=== PATIENT | male | born 1950 | race Two or more races ===

== ENCOUNTER 2023-01-23 12:31 | Inpatient (IN) | payer MEDICARE, MEDICAID ==
[~2023-01-23] VITALS: Ht 170.2 cm; Wt 116.0 kg
[~2023-01-23 12:31] MED LIST: ALBU8.5H17 IH; ATOR-2 PO; DEC4T PO; ENOX40DI11 SUBCUT; FLO0.4C PO; LORA10TA7 PO; NITR0.4T48 SL; RAMI10CA69 PO
[2023-01-23 12:56] LABS: BASOPHILS % (AUTO) 0.5 % (0-1); EOSINOPHILS # (AUTO) 0.2 X10'3 (0-0.9); EOSINOPHILS % (AUTO) 1.7 % (0-6); HEMATOCRIT 48.1 % (42.0-52.0); HEMOGLOBIN 15.7 g/dl (14.0-17.9); LYMPHOCYTES # (AUTO) 1.9 X10'3 (1.1-4.8); LYMPHOCYTES % (AUTO) 21.1 % (21-51); MEAN CORPUSCULAR HEMOGLOBIN 28.7 PG (27.0-31.0); MEAN CORPUSCULAR HGB CONC 32.7 g/dL (33.0-36.5); MEAN CORPUSCULAR VOLUME 87.8 FL (78-98); MEAN PLATELET VOLUME 7.4 FL (7.4-10.4); MONOCYTES # (AUTO) 0.8 X10'3 (0-0.9); MONOCYTES % (AUTO) 9.2 % (2-12); NEUTROPHILS # (AUTO) 6.2 X10'3 (1.8-7.7); NEUTROPHILS % (AUTO) 67.5 % (42-75); PLATELET COUNT 325 X10'3 (140-440); RED BLOOD COUNT 5.47 X10'6 (4.70-6.10); RED CELL DISTRIBUTION WIDTH 15.4 % (11.5-14.5); WHITE BLOOD COUNT 9.2 X10'3 (4.5-11.0)
--- NOTE | 2023-01-23 13:21 | NUR ---
CRITICAL LAB VALUE. TROPONIN LEVEL OF [address] CHAHAL HAVE BEEN NOTIFIED.
[2023-01-23 13:22] LABS: ALANINE AMINOTRANSFERASE 29 U/L (12-78); ALBUMIN 3.8 G/DL (3.4-5.0); ALKALINE PHOSPHATASE 85 IU/L (46-116); ANION GAP 12 (8-16); ASPARTATE AMINO TRANSFERASE 20 U/L (10-37); BILIRUBIN,TOTAL 0.6 MG/DL (0.1-1.0); BLOOD UREA NITROGEN 28 MG/DL (7-18); BUN/CREATININE RATIO 13.7 (10.0-20.0); CALCIUM 9.2 MG/DL (8.5-10.1); CHLORIDE 106 MMOL/L (99-107); CREATININE 2.04 MG/DL (0.60-1.10); GLUCOSE 145 MG/DL (70-104); POTASSIUM 4.1 MMOL/L (3.5-5.1); PRO BRAIN NATRIURETIC PEPTIDE 2366 PG/ML (0-125); SODIUM 141 MMOL/L (135-145); TOTAL CARBON DIOXIDE 22.8 MMOL/L (24-32); TOTAL PROTEIN 7.6 G/DL (6.4-8.2); eCRCL 31 ML/MIN; eGFR 32 ML/MIN
[2023-01-23 14:42] LABS: D-DIMER 0.22 MG/L FEU (0-0.50)
--- NOTE | 2023-01-23 15:21 | NUR ---
Critical lab troponin 81. Francie NARAYANAN notified.
[2023-01-23] MEDS ORDERED: DOCU100C40 PO (16:09)
[2023-01-23] MEDS ORDERED: KEN0.1O TOP (16:09)
[2023-01-23] MEDS ORDERED: ADV50250 PO (16:09)
[2023-01-23] MEDS ORDERED: ALLO300T8 PO (16:09)
[2023-01-23] MEDS ORDERED: OMEP20CA16 PO (16:09)
[2023-01-23] MEDS ORDERED: ASPI-1397 PO (16:09)
[2023-01-23] MEDS ORDERED: ISOS10TA2 PO (16:09)
[2023-01-23] MEDS ORDERED: METO-411 PO (16:09)
[2023-01-23] MEDS ORDERED: MONT-40 PO (16:09)
[2023-01-23] MEDS ORDERED: MELO-102 PO (16:09)
[2023-01-23] MEDS ORDERED: ALBU17AE26 PO (16:09)
[2023-01-23] MEDS ORDERED: METO-384 PO (16:09)
[2023-01-23] MEDS ORDERED: AMLO5TAB16 PO (16:09)
[2023-01-23] MEDS ORDERED: AZEL6DRO5 EACHEYE (16:09)
[2023-01-23] MEDS ORDERED: EZET10TA48 PO (16:09)
[2023-01-23] MEDS ORDERED: AZEL205. BOTHNARES (16:09)
[2023-01-23] MEDS ORDERED: FINA5TAB12 PO (16:09)
[2023-01-23] MEDS ORDERED: mag hydrox/Alum hydrox/simeth 30ml oral suspension PO PRN (17:15)
[2023-01-23] MEDS ORDERED: magnesium Cl slow-release 64mg tablet PO PRN (17:15)
[2023-01-23] MEDS ORDERED: magnesium 2GM in 50ml NS 50 ML IV PRN (17:15)
[2023-01-23] MEDS ORDERED: acetaminophen 325mg tablet PO PRN (17:15)
[2023-01-23] MEDS ORDERED: ondansetron/PF 4mg/2ml inj IV PRN (17:15)
[2023-01-23] MEDS ORDERED: magnesium 4gm in 100ml NS 100 ML IV PRN (17:15)
[2023-01-23] MEDS ORDERED: potassium Cl 20 mEq SR tablet PO PRN ×2 (17:15)
[2023-01-23] MEDS ORDERED: magnesium hydroxide 30ml (MOM) UD suspension PO PRN (17:15)
[2023-01-23] MEDS ORDERED: morphine 2 MG/ML inj. syringe IV PRN ×2 (17:15)
[2023-01-23] MEDS ORDERED: potassium Cl 40MEQ/1/2NS 520ml 520 ML IV PRN (17:15)
[2023-01-23] MEDS ORDERED: albuterol 2.5 MG/3 ML nebule NEB PRN (17:40)
[2023-01-23 17:54] LABS: MAGNESIUM 1.9 MG/DL (1.5-2.4)
[2023-01-23 18:00] LABS: HEMOGLOBIN A1C 5.9 % (4.5-6.2)
[2023-01-23] MEDS ORDERED: nitroGLYCERIN 0.4mg SUBLingual tab SL PRN (18:20)
[2023-01-23] MEDS ORDERED: regadenoson 0.4mg/5ml syringe IV PRN (18:20)
[2023-01-23] MEDS ORDERED: aminophylline 250mg/10ml inj. IV PRN (18:20)
[2023-01-23] MEDS ORDERED: metoprolol tartrate 1mg/ml inj IV PRN (18:20)
[2023-01-23] MEDS ORDERED: clopidogrel 75mg tablet PO SCH (18:20)
--- NOTE | 2023-01-23 18:21 | NUR ---
assumed care from jorge gay
--- NOTE | 2023-01-23 18:22 | NUR ---
technical architect at bedside.
[2023-01-23] MEDS ORDERED: ipratropium/albuterol 3ml nebule NEB PRN (18:55)
--- NOTE | 2023-01-23 19:22 | NUR ---
HOSPITALIST AT BEDSIDE
[2023-01-23 20:00] VITALS: RESP 17; O2SAT 97
[2023-01-23] MEDS ORDERED: amLODIPine 5mg tablet PO SCH (20:00)
[2023-01-23] MEDS ORDERED: AZELASTINE HCL EACHEYE SCH (20:00)
[2023-01-23] MEDS ORDERED: AZELASTINE HCL 0.15% NS SCH (20:00)
[2023-01-23] MEDS: K and/or MAG REPLACEMENT MC SCH (20:00)
[2023-01-23] MEDS ORDERED: RAMIPRIL PO SCH (20:00)
[2023-01-23] MEDS: ipratropium/albuterol 3ml nebule NEB SCH (20:01)
[2023-01-23 20:03] VITALS: PULSE 59; RESP 16; O2SAT 99
[2023-01-23 20:11] VITALS: PULSE 64; RESP 17
[2023-01-23] MEDS: ezetimibe 10mg tablet PO SCH (20:22)
[2023-01-23] MEDS: docusate sod 100mg capsule PO SCH (20:22)
[2023-01-23] MEDS: apixaban 5mg tablet PO SCH (20:22)
[2023-01-23] MEDS: tamsulosin 0.4mg capsule PO SCH (20:22)
[2023-01-23] MEDS: aspirin 81mg, enteric-coated 1 TAB TABLET.DR PO SCH (20:22)
[2023-01-23] MEDS ORDERED: albuterol 2.5 MG/3 ML nebule NEB SCH (21:00)
[2023-01-23] MEDS ORDERED: montelukast 10mg tablet PO SCH (21:00)
[2023-01-23 21:19] LABS: BILIRUBIN,URINE NEGATIVE (Neg); CLARITY,URINE CLEAR (Clear); COLOR,URINE YELLOW (Yellow); GLUCOSE, URINE NEGATIVE (Neg); KETONES,URINE NEGATIVE (Neg); LEUKOCYTE ESTERASE ,URINE NEGATIVE (Neg); NITRITES, URINE NEGATIVE (Neg); OCCULT BLOOD,URINE NEGATIVE (Neg); PH,URINE 5.5 (4.8-8.0); PROTEIN,URINE NEGATIVE (Neg); UROBILINOGEN,URINE 0.2 E.U/dL (0.2-1.0)
[2023-01-23 21:38] LABS: UA COLLECTION TYPE URINAL
[2023-01-23 22:12] VITALS: BP 151/85; PULSE 65; RESP 17; TEMP 97.5; O2SAT 97
[2023-01-24] VITALS (27 sets, daily range): BP systolic 122–161; BP diastolic 51–96; PULSE 48–75; RESP 11–24; TEMP 97.6–98.2; O2SAT 97–100
[2023-01-24] MEDS ORDERED: heparin, porcine 5000 units/ml vial SQ SCH
[2023-01-24] MEDS: ipratropium/albuterol 3ml nebule NEB SCH ×3 (02:25→15:36)
--- NOTE | 2023-01-24 06:21 | NUR ---
Problems reprioritized. Patient report given, questions answered & plan of care reviewed with ERAN MORENO.
--- NOTE | 2023-01-24 06:31 | NUR ---
Patient in room PCU 3014. I have received report from KEYUR MORENO and had the opportunity to ask questions and assume patient care.
[2023-01-24 06:50] LABS: BASOPHILS % (AUTO) 0.4 % (0-1); EOSINOPHILS # (AUTO) 0.3 X10'3 (0-0.9); EOSINOPHILS % (AUTO) 3.1 % (0-6); HEMATOCRIT 41.9 % (42.0-52.0); HEMOGLOBIN 13.6 g/dl (14.0-17.9); LYMPHOCYTES # (AUTO) 1.5 X10'3 (1.1-4.8); LYMPHOCYTES % (AUTO) 18.1 % (21-51); MEAN CORPUSCULAR HEMOGLOBIN 28.6 PG (27.0-31.0); MEAN CORPUSCULAR HGB CONC 32.5 g/dL (33.0-36.5); MEAN CORPUSCULAR VOLUME 87.9 FL (78-98); MEAN PLATELET VOLUME 7.2 FL (7.4-10.4); MONOCYTES # (AUTO) 0.9 X10'3 (0-0.9); MONOCYTES % (AUTO) 10.6 % (2-12); NEUTROPHILS # (AUTO) 5.6 X10'3 (1.8-7.7); NEUTROPHILS % (AUTO) 67.8 % (42-75); PLATELET COUNT 244 X10'3 (140-440); RED BLOOD COUNT 4.77 X10'6 (4.70-6.10); WHITE BLOOD COUNT 8.2 X10'3 (4.5-11.0)
[2023-01-24 07:03] LABS: ALANINE AMINOTRANSFERASE 24 U/L (12-78); ALBUMIN 3.3 G/DL (3.4-5.0); ALKALINE PHOSPHATASE 73 IU/L (46-116); ANION GAP 6 (8-16); ASPARTATE AMINO TRANSFERASE 18 U/L (10-37); BILIRUBIN,TOTAL 0.5 MG/DL (0.1-1.0); BLOOD UREA NITROGEN 29 MG/DL (7-18); BUN/CREATININE RATIO 19.2 (10.0-20.0); CALCIUM 8.8 MG/DL (8.5-10.1); CHLORIDE 106 MMOL/L (99-107); CHOL/HDL RATIO 2.4 (0.00-4.99); CHOLESTEROL 105 MG/DL (0-200); CREATININE 1.51 MG/DL (0.60-1.10); GLUCOSE 101 MG/DL (70-104); HDL CHOLESTEROL 43 MG/DL (35-60); LDL CHOLESTEROL 49 MG/DL (50-100); MAGNESIUM 1.9 MG/DL (1.5-2.4); POTASSIUM 4.5 MMOL/L (3.5-5.1); SODIUM 139 MMOL/L (135-145); TOTAL CARBON DIOXIDE 27.3 MMOL/L (24-32); TOTAL PROTEIN 6.7 G/DL (6.4-8.2); TRIGLYCERIDES 87 MG/DL (20-135); eCRCL 42 ML/MIN; eGFR 46 ML/MIN
[2023-01-24] MEDS: ezetimibe 10mg tablet PO SCH (07:38)
[2023-01-24] MEDS: aspirin 81mg, enteric-coated 1 TAB TABLET.DR PO SCH (07:39)
[2023-01-24] MEDS: docusate sod 100mg capsule PO SCH (07:39)
[2023-01-24] MEDS: apixaban 5mg tablet PO SCH (07:39)
[2023-01-24] MEDS: tamsulosin 0.4mg capsule PO SCH (07:39)
[2023-01-24] MEDS: K and/or MAG REPLACEMENT MC SCH (08:00)
[2023-01-24] MEDS ORDERED: metoprolol succinate 25mg (24-HOUR) SR. Tablet PO SCH (08:00)
[2023-01-24] MEDS ORDERED: pantoprazole 40mg Tablet.DR PO SCH (08:00)
[2023-01-24] MEDS ORDERED: finasteride 5mg tablet PO SCH (08:00)
[2023-01-24] MEDS ORDERED: loratadine 10mg tablet PO SCH (08:00)
--- NOTE | 2023-01-24 15:29 | NUR ---
PT. TITRATED TO 2L 02. WILL CONTINUE TO MONITOR Addendum: 01/24/23 at 1552 by Vipin Hernandez RN PT. TITRATED DOWN TO 1L D/T 97% SAT ON 2L. WILL CONTINUE TO MONITOR Addendum: 01/24/23 at 1701 by Vipin Hernandez RN PT 02 96% ON 1L. WILL CONTINUE TO MONITOR.
--- NOTE | 2023-01-24 16:29 | NUR ---
I CALLED THE STRESS TEST NUMBER TO FIND OUT THE RESULTS ON THE STRESS TEST TWICE PER MD ORDERS, NO RESULTS YET. WILL KEEP TRACK OF STATUS. Addendum: 01/24/23 at 1635 by Vipin Hernandez RN Message: JOSH BARILLAS, [facility], [id number]. RE: [phone]. I CALLED THE [facility] ABOUT THE STATUS OF THE EMRE SCAN, AND THEY SAID THEY WILL GET RIGHT ON IT. Addendum: 01/24/23 at 9726 by Vipin Hernandez RN EMRE SCAN RESULTS ARE RESULTED.
[2023-01-24] MEDS ORDERED: AMLO5TAB16 PO (16:52)
[2023-01-24] MEDS ORDERED: APIX5TAB3 PO (16:52)
[2023-01-24] MEDS ORDERED: METO-411 PO (16:52)
--- NOTE | 2023-01-24 18:00 | NUR ---
PT DISCHARGED, IV CANNULA WHOLE AND INTACT UPON REMOVAL, PT. ALERT AND STABLE, PT. WENT HOME IN PRIVATE VEHICLE WITH FAMILY. PT. LEFT WITH ALL BELONGINGS. PT. TO FOLLOW UP WITH PRIMARY CARE PROVIDER WITHIN 2-3 DAYS TIME PER MD ORDERS, AND WAS EDUCATED ON S/S OF SOB, CHEST PAIN, MEDS, AND HOME OXYGEN USE.
== END 2023-01-24 17:51 | disposition home or self-care (01) | DRG 391 ==
LOC: ER 12:31 → ED HOLD 17:36 → EDBEDREQ 21:01 → PCU 3S 21:40
PROVIDERS: ADMIT Family Medicine; ATTEND Family Medicine
PROC: 4A02XM4 Measurement of Cardiac Total Activity, External Approach (ICD-10-PCS; principal; 2023-01-24)
PROC: 3E073KZ Introduction of Other Diagnostic Substance into Coronary Artery, Percutaneous Approach (ICD-10-PCS; 2023-01-24)
DX: K21.9 Gastro-esophageal reflux disease without esophagitis (principal); I21.A1 Myocardial infarction type 2; J96.10 Chronic respiratory failure, unspecified whether with hypoxia or hypercapnia; Z68.41 Body mass index [BMI] 40.0-44.9, adult; I13.0 Hypertensive heart and chronic kidney disease with heart failure and stage 1 through stage 4 chronic kidney disease, or unspecified chronic kidney disease; R07.89 Other chest pain; G47.33 Obstructive sleep apnea (adult) (pediatric); E78.5 Hyperlipidemia, unspecified; N18.9 Chronic kidney disease, unspecified; J44.9 Chronic obstructive pulmonary disease, unspecified; E66.01 Morbid (severe) obesity due to excess calories; I48.91 Unspecified atrial fibrillation; Z60.2 Problems related to living alone; I25.10 Atherosclerotic heart disease of native coronary artery without angina pectoris; I50.9 Heart failure, unspecified; F41.9 Anxiety disorder, unspecified; Z99.81 Dependence on supplemental oxygen; Z88.0 Allergy status to penicillin; Z88.8 Allergy status to other drugs, medicaments and biological substances; Z79.899 Other long term (current) drug therapy
CPT/HCPCS: 36415; 71045; 78452; 80053; 80061; 81003; 83036; 83735; 83880; 84484; 85025; 85379; 87081; 93005; 93017; 93306; 94640; 94760; 99285; A4615; A9500; G0378; J0280; J2785

== ENCOUNTER 2023-04-30 10:19 | Outpatient (CLI) | payer MEDICARE, MEDICAID ==
[~2023-04-30 10:19] MED LIST changes: +ADV50250 PO; +ALBU17AE26 PO; -ALBU8.5H17 IH; +ALLO300T8 PO; +AMLO5TAB16 PO; +APIX5TAB3 PO; +ASPI-1397 PO; +AZEL205. BOTHNARES; +AZEL6DRO5 EACHEYE; -DEC4T PO; +DOCU100C40 PO; -ENOX40DI11 SUBCUT; +EZET10TA48 PO; +FINA5TAB12 PO; +ISOS10TA2 PO; +KEN0.1O TOP; +METO-411 PO; +MONT-40 PO; +OMEP20CA16 PO
[2023-04-30 11:36] LABS: ABG BASE EXCESS 0.9 mmol/L (-2.0-2.0); ABG HCO3 26.2 mmol/L (22.0-26.0); ABG OXYGEN SATURATION 98.5 % (94-97); ABG PCO2 (T) 44.2 mmHg (35.0-48.0); ALLEN'S TEST POSITIVE; FCOHb 0.3 % (0.0-3.9); FHHb 1.5 % (0.0-5.0); FLOW 4 L/min; FMetHb 0.3 % (0.0-1.5); FO2Hb 97.9 % (94-97); MODE NASAL CANNULA; TOTAL HEMOGLOBIN 14.3 G/dl (14.0-17.9)
== END 2023-04-30 23:59 | disposition home or self-care (01) ==
LOC: LAB 10:19
PROVIDERS: ATTEND Physician Assistant
DX: I50.9 Heart failure, unspecified (principal)
CPT/HCPCS: 36600; 82803; 85018

== ENCOUNTER 2023-07-22 08:35 | Inpatient (IN) | payer MEDICARE, MEDICAID ==
[~2023-07-22] VITALS: Ht 167.6 cm; Wt 116.1 kg
[2023-07-22] MEDS ORDERED: furosemide 10 MG/1 ML 10ml inj IV ONE (09:15)
[2023-07-22 09:27] LABS: ALANINE AMINOTRANSFERASE 20 U/L (12-78); ALBUMIN 3.5 G/DL (3.4-5.0); ALBUMIN/GLOBULIN RATIO 0.9 (1.1-1.5); ALKALINE PHOSPHATASE 82 IU/L (46-116); ANION GAP 9 (8-16); ASPARTATE AMINO TRANSFERASE 14 U/L (10-37); BILIRUBIN,TOTAL 0.4 MG/DL (0.1-1.0); BLOOD UREA NITROGEN 26 MG/DL (7-18); BUN/CREATININE RATIO 16.3 (10.0-20.0); CALCIUM 8.7 MG/DL (8.5-10.1); CHLORIDE 103 MMOL/L (99-107); GLUCOSE 107 MG/DL (70-104); POTASSIUM 4.1 MMOL/L (3.5-5.1); SODIUM 142 MMOL/L (135-145); TOTAL CARBON DIOXIDE 29.7 MMOL/L (24-32); TOTAL PROTEIN 7.6 G/DL (6.4-8.2); eCRCL 38 ML/MIN; eGFR 43 ML/MIN
[2023-07-22 09:33] LABS: PRO BRAIN NATRIURETIC PEPTIDE 388 PG/ML (0-125)
[2023-07-22 10:10] LABS: BASOPHILS % (AUTO) 0.2 % (0-1); EOSINOPHILS # (AUTO) 0.1 X10'3 (0-0.9); EOSINOPHILS % (AUTO) 0.6 % (0-6); HEMATOCRIT 43.9 % (42.0-52.0); HEMOGLOBIN 14.1 g/dl (14.0-17.9); LYMPHOCYTES # (AUTO) 0.8 X10'3 (1.1-4.8); LYMPHOCYTES % (AUTO) 8.6 % (21-51); MEAN CORPUSCULAR HEMOGLOBIN 28.8 PG (27.0-31.0); MEAN CORPUSCULAR HGB CONC 32.3 g/dL (33.0-36.5); MEAN CORPUSCULAR VOLUME 89.2 FL (78-98); MEAN PLATELET VOLUME 7.3 FL (7.4-10.4); MONOCYTES # (AUTO) 0.6 X10'3 (0-0.9); NEUTROPHILS # (AUTO) 7.7 X10'3 (1.8-7.7); NEUTROPHILS % (AUTO) 83.6 % (42-75); PLATELET COUNT 243 X10'3 (140-440); RED BLOOD COUNT 4.92 X10'6 (4.70-6.10); RED CELL DISTRIBUTION WIDTH 15.1 % (11.5-14.5); WHITE BLOOD COUNT 9.2 X10'3 (4.5-11.0)
[2023-07-22] MEDS ORDERED: hydrALAZINE 20mg/ml inj. IV ONE (10:45)
[2023-07-22 11:29] LABS: BILIRUBIN,URINE NEGATIVE (Neg); CLARITY,URINE CLEAR (Clear); COLOR,URINE STRAW (Yellow); GLUCOSE, URINE NEGATIVE (Neg); KETONES,URINE NEGATIVE (Neg); LEUKOCYTE ESTERASE ,URINE NEGATIVE (Neg); NITRITES, URINE NEGATIVE (Neg); OCCULT BLOOD,URINE NEGATIVE (Neg); PROTEIN,URINE NEGATIVE (Neg); UROBILINOGEN,URINE 0.2 E.U/dL (0.2-1.0)
[2023-07-22 11:33] LABS: UA COLLECTION TYPE CLN CATCH MIDSTREAM
[2023-07-22] MEDS ORDERED: METO-384 PO (11:33)
[2023-07-22] MEDS ORDERED: MELO-102 PO (11:33)
[2023-07-22] MEDS ORDERED: ALBU18HF2 INH (11:33)
[2023-07-22] MEDS ORDERED: ISOS60TA71 PO (11:33)
[2023-07-22] MEDS ORDERED: ALLO100T PO (11:33)
[2023-07-22] MEDS ORDERED: FLUT12HF3 PO (11:33)
[2023-07-22] MEDS ORDERED: AMLO2.5T2 PO (11:35)
[2023-07-22] MEDS ORDERED: potassium Cl 20 mEq SR tablet PO PRN ×2 (14:10)
[2023-07-22] MEDS ORDERED: acetaminophen 325mg tablet PO PRN ×2 (14:10)
[2023-07-22] MEDS ORDERED: magnesium 2GM in 50ml NS 50 ML IV PRN (14:10)
[2023-07-22] MEDS ORDERED: potassium Cl 40MEQ/1/2NS 520ml 520 ML IV PRN (14:10)
[2023-07-22] MEDS ORDERED: ondansetron/PF 4mg/2ml inj IV PRN (14:10)
[2023-07-22] MEDS ORDERED: magnesium hydroxide 30ml (MOM) UD suspension PO PRN (14:10)
[2023-07-22] MEDS ORDERED: magnesium Cl slow-release 64mg tablet PO PRN (14:10)
[2023-07-22] MEDS ORDERED: magnesium 4gm in 100ml NS 100 ML IV PRN (14:10)
[2023-07-22] MEDS ORDERED: mag hydrox/Alum hydrox/simeth 30ml oral suspension PO PRN (14:10)
[2023-07-22] MEDS ORDERED: nitroGLYCERIN 0.4mg SUBLingual tab SL PRN (18:20)
[2023-07-22] MEDS ORDERED: albuterol 2.5 MG/3 ML nebule NEB PRN (18:20)
[2023-07-22] MEDS ORDERED: heparin, porcine 5000 units/ml vial SQ SCH (20:00)
[2023-07-22] MEDS ORDERED: non-formulary drug (Albuterol Sulfate (Ventolin Hfa) 2 PUFFS) INH SCH (20:00)
[2023-07-22] MEDS: lisinopril 10 MG tablet PO SCH (20:00)
[2023-07-22] MEDS: apixaban 5mg tablet PO SCH (20:00)
[2023-07-22] MEDS: triamcinolone acet 0.1% cream 15gm TP SCH (20:00)
[2023-07-22] MEDS: K and/or MAG REPLACEMENT MC SCH (20:00)
[2023-07-22] MEDS: montelukast 10mg tablet PO SCH (21:10)
[2023-07-22 21:40] VITALS: BP_SYST 163; BP_SYST 178; BP_DIAS 76; BP_DIAS 90; BP_DIAS 95; PULSE 60; PULSE 61; PULSE 69
[2023-07-22 21:41] VITALS: BP 163/76; PULSE 61; RESP 22; TEMP 98.9; O2SAT 98
[2023-07-22 22:47] VITALS: RESP 17; O2SAT 95
[2023-07-22] MEDS ORDERED: CYCL-394 PO (23:20)
[2023-07-23] VITALS (11 sets, daily range): BP systolic 102–179; BP diastolic 60–94; PULSE 53–79; RESP 16–21; TEMP 97.4–98.2; O2SAT 95–100
[2023-07-23] MEDS ORDERED: hydrALAZINE 20mg/ml inj. IV PRN (02:30)
[2023-07-23 06:34] LABS: BASOPHILS % (AUTO) 0.4 % (0-1); EOSINOPHILS # (AUTO) 0.2 X10'3 (0-0.9); EOSINOPHILS % (AUTO) 2.6 % (0-6); HEMATOCRIT 46.3 % (42.0-52.0); HEMOGLOBIN 15.1 g/dl (14.0-17.9); LYMPHOCYTES # (AUTO) 1.3 X10'3 (1.1-4.8); LYMPHOCYTES % (AUTO) 17.1 % (21-51); MEAN CORPUSCULAR HGB CONC 32.7 g/dL (33.0-36.5); MEAN CORPUSCULAR VOLUME 88.7 FL (78-98); MEAN PLATELET VOLUME 7.3 FL (7.4-10.4); MONOCYTES # (AUTO) 0.8 X10'3 (0-0.9); NEUTROPHILS # (AUTO) 5.4 X10'3 (1.8-7.7); NEUTROPHILS % (AUTO) 69.9 % (42-75); PLATELET COUNT 266 X10'3 (140-440); RED BLOOD COUNT 5.23 X10'6 (4.70-6.10); RED CELL DISTRIBUTION WIDTH 15.1 % (11.5-14.5); WHITE BLOOD COUNT 7.7 X10'3 (4.5-11.0)
[2023-07-23 07:00] LABS: ALANINE AMINOTRANSFERASE 23 U/L (12-78); ALBUMIN 3.6 G/DL (3.4-5.0); ALKALINE PHOSPHATASE 84 IU/L (46-116); ANION GAP 5 (8-16); ASPARTATE AMINO TRANSFERASE 14 U/L (10-37); BILIRUBIN,TOTAL 0.5 MG/DL (0.1-1.0); BLOOD UREA NITROGEN 26 MG/DL (7-18); BUN/CREATININE RATIO 19.5 (10.0-20.0); CALCIUM 9.4 MG/DL (8.5-10.1); CHLORIDE 100 MMOL/L (99-107); CHOL/HDL RATIO 3.8 (0.00-4.99); CHOLESTEROL 177 MG/DL (0-200); CREATININE 1.33 MG/DL (0.60-1.10); GLUCOSE 106 MG/DL (70-104); HDL CHOLESTEROL 46 MG/DL (35-60); LDL CHOLESTEROL 106 MG/DL (50-100); MAGNESIUM 1.9 MG/DL (1.5-2.4); POTASSIUM 4.3 MMOL/L (3.5-5.1); SODIUM 137 MMOL/L (135-145); TOTAL CARBON DIOXIDE 31.8 MMOL/L (24-32); TOTAL PROTEIN 7.1 G/DL (6.4-8.2); TRIGLYCERIDES 118 MG/DL (20-135); eCRCL 45 ML/MIN; eGFR 53 ML/MIN
[2023-07-23] MEDS: triamcinolone acet 0.1% cream 15gm TP SCH ×2 (08:00→20:00)
[2023-07-23] MEDS ORDERED: allopurinol 300 MG tablet PO SCH (08:00)
[2023-07-23] MEDS: K and/or MAG REPLACEMENT MC SCH ×2 (08:00→20:00)
[2023-07-23] MEDS: isosorbide mononitrate 30mg tab.SR.24H PO SCH (08:27)
[2023-07-23] MEDS: atorvastatin 20mg tablet PO SCH (08:27)
[2023-07-23] MEDS: lisinopril 10 MG tablet PO SCH ×2 (08:27→20:00)
[2023-07-23] MEDS: metoprolol succinate 25mg (24-HOUR) SR. Tablet PO SCH (08:28)
[2023-07-23] MEDS: pantoprazole 40mg Tablet.DR PO SCH (08:28)
[2023-07-23] MEDS: aspirin 81mg, enteric-coated 1 TAB TABLET.DR PO SCH (08:29)
[2023-07-23] MEDS: apixaban 5mg tablet PO SCH ×2 (08:29→21:26)
[2023-07-23] MEDS: amLODIPine 5mg tablet PO SCH (08:29)
[2023-07-23] MEDS: allopurinol 100mg tablet PO SCH (08:29)
[2023-07-23] MEDS: montelukast 10mg tablet PO SCH (21:26)
[2023-07-24 02:00] VITALS: BP 138/78; PULSE 55; RESP 15; TEMP 97.7; O2SAT 97
[2023-07-24 06:34] LABS: BASOPHILS % (AUTO) 0.4 % (0-1); EOSINOPHILS # (AUTO) 0.3 X10'3 (0-0.9); EOSINOPHILS % (AUTO) 3.5 % (0-6); HEMATOCRIT 43.5 % (42.0-52.0); HEMOGLOBIN 14.3 g/dl (14.0-17.9); LYMPHOCYTES # (AUTO) 1.6 X10'3 (1.1-4.8); LYMPHOCYTES % (AUTO) 21.1 % (21-51); MEAN CORPUSCULAR HEMOGLOBIN 29.3 PG (27.0-31.0); MEAN CORPUSCULAR VOLUME 88.8 FL (78-98); MEAN PLATELET VOLUME 7.1 FL (7.4-10.4); MONOCYTES # (AUTO) 0.8 X10'3 (0-0.9); MONOCYTES % (AUTO) 11.3 % (2-12); NEUTROPHILS # (AUTO) 4.8 X10'3 (1.8-7.7); NEUTROPHILS % (AUTO) 63.7 % (42-75); PLATELET COUNT 273 X10'3 (140-440); RED CELL DISTRIBUTION WIDTH 14.8 % (11.5-14.5); WHITE BLOOD COUNT 7.5 X10'3 (4.5-11.0)
[2023-07-24 06:55] LABS: ALANINE AMINOTRANSFERASE 18 U/L (12-78); ALBUMIN 3.2 G/DL (3.4-5.0); ALBUMIN/GLOBULIN RATIO 0.9 (1.1-1.5); ALKALINE PHOSPHATASE 73 IU/L (46-116); ANION GAP 5 (8-16); ASPARTATE AMINO TRANSFERASE 15 U/L (10-37); BILIRUBIN,TOTAL 0.6 MG/DL (0.1-1.0); BLOOD UREA NITROGEN 26 MG/DL (7-18); BUN/CREATININE RATIO 17.2 (10.0-20.0); CALCIUM 9.1 MG/DL (8.5-10.1); CHLORIDE 99 MMOL/L (99-107); CREATININE 1.51 MG/DL (0.60-1.10); GLUCOSE 83 MG/DL (70-104); MAGNESIUM 1.9 MG/DL (1.5-2.4); PHOSPHORUS 3.5 MG/DL (2.3-4.5); POTASSIUM 4.2 MMOL/L (3.5-5.1); SODIUM 137 MMOL/L (135-145); TOTAL CARBON DIOXIDE 32.9 MMOL/L (24-32); TOTAL PROTEIN 6.9 G/DL (6.4-8.2); eCRCL 40 ML/MIN; eGFR 46 ML/MIN
[2023-07-24 08:00] VITALS: RESP 20; O2SAT 97
[2023-07-24] MEDS: K and/or MAG REPLACEMENT MC SCH (08:00)
[2023-07-24] MEDS: triamcinolone acet 0.1% cream 15gm TP SCH (08:00)
[2023-07-24] MEDS: metoprolol succinate 25mg (24-HOUR) SR. Tablet PO SCH (08:45)
[2023-07-24] MEDS: atorvastatin 20mg tablet PO SCH (08:46)
[2023-07-24] MEDS: pantoprazole 40mg Tablet.DR PO SCH (08:46)
[2023-07-24] MEDS: isosorbide mononitrate 30mg tab.SR.24H PO SCH (08:46)
[2023-07-24] MEDS: apixaban 5mg tablet PO SCH (08:46)
[2023-07-24] MEDS: allopurinol 100mg tablet PO SCH (08:46)
[2023-07-24] MEDS: lisinopril 10 MG tablet PO SCH (08:47)
[2023-07-24 08:48] VITALS: BP_SYST 160; PULSE 63
[2023-07-24] MEDS: aspirin 81mg, enteric-coated 1 TAB TABLET.DR PO SCH (08:48)
[2023-07-24] MEDS: amLODIPine 5mg tablet PO SCH (08:48)
[2023-07-24] MEDS ORDERED: APIX5TAB3 PO (14:26)
[2023-07-24] MEDS ORDERED: EZET10TA7 PO (14:26)
[2023-07-24] MEDS ORDERED: RAMI10CA69 PO (14:26)
== END 2023-07-24 15:32 | disposition home or self-care (01) | DRG 305 ==
LOC: ER 08:35 → ED HOLD 12:45 → PCU 3S 21:25
PROVIDERS: ADMIT Family Medicine; ATTEND Family Medicine
DX: I16.0 Hypertensive urgency (principal); J96.10 Chronic respiratory failure, unspecified whether with hypoxia or hypercapnia; Z68.41 Body mass index [BMI] 40.0-44.9, adult; I50.9 Heart failure, unspecified; I25.10 Atherosclerotic heart disease of native coronary artery without angina pectoris; E78.5 Hyperlipidemia, unspecified; Z60.2 Problems related to living alone; J44.9 Chronic obstructive pulmonary disease, unspecified; F41.9 Anxiety disorder, unspecified; F42.9 Obsessive-compulsive disorder, unspecified; N40.0 Benign prostatic hyperplasia without lower urinary tract symptoms; I48.91 Unspecified atrial fibrillation; I13.0 Hypertensive heart and chronic kidney disease with heart failure and stage 1 through stage 4 chronic kidney disease, or unspecified chronic kidney disease; N18.30 Chronic kidney disease, stage 3 unspecified; E66.9 Obesity, unspecified; Z79.899 Other long term (current) drug therapy; Z91.148 Patient's other noncompliance with medication regimen for other reason; Z86.16 Personal history of COVID-19; Z79.82 Long term (current) use of aspirin; Z79.01 Long term (current) use of anticoagulants; Z99.81 Dependence on supplemental oxygen; Z88.0 Allergy status to penicillin; Z88.8 Allergy status to other drugs, medicaments and biological substances
CPT/HCPCS: 36415; 70450; 71045; 80053; 80061; 81003; 83036; 83735; 83880; 84100; 84484; 85025; 87081; 93005; 93880; 94760; 99285; G0378; J0360; J1940; J7030

== ENCOUNTER 2023-09-09 15:15 | Inpatient (IN) | payer MEDICARE, MEDICAID ==
[~2023-09-09] VITALS: Ht 167.6 cm; Wt 121.0 kg
[~2023-09-09 15:15] MED LIST changes: -ADV50250 PO; +ALBU18HF2 INH; +ALLO100T PO; +AMLO2.5T2 PO; -AMLO5TAB16 PO; +FLUT12HF3 PO; -ISOS10TA2 PO; +ISOS60TA71 PO; +MELO-102 PO; +METO-384 PO; -METO-411 PO
[2023-09-09] MEDS: aspirin 81mg tab.chew PO ONE (17:25)
[2023-09-09 18:23] LABS: BASOPHILS % (AUTO) 0.4 % (0-1); EOSINOPHILS # (AUTO) 0.2 X10'3 (0-0.9); EOSINOPHILS % (AUTO) 2.5 % (0-6); HEMATOCRIT 45.1 % (42.0-52.0); HEMOGLOBIN 15.1 g/dl (14.0-17.9); LYMPHOCYTES # (AUTO) 1.6 X10'3 (1.1-4.8); LYMPHOCYTES % (AUTO) 18.9 % (21-51); MEAN CORPUSCULAR HEMOGLOBIN 29.4 PG (27.0-31.0); MEAN CORPUSCULAR HGB CONC 33.5 g/dL (33.0-36.5); MEAN CORPUSCULAR VOLUME 87.7 FL (78-98); MONOCYTES # (AUTO) 0.7 X10'3 (0-0.9); MONOCYTES % (AUTO) 8.2 % (2-12); NEUTROPHILS # (AUTO) 5.7 X10'3 (1.8-7.7); PLATELET COUNT 285 X10'3 (140-440); RED BLOOD COUNT 5.14 X10'6 (4.70-6.10); RED CELL DISTRIBUTION WIDTH 15.2 % (11.5-14.5); WHITE BLOOD COUNT 8.2 X10'3 (4.5-11.0)
[2023-09-09] MEDS: normal saline 1000ml 1,000 ML IV ONE (18:33)
[2023-09-09 18:44] LABS: ALBUMIN 3.5 G/DL (3.4-5.0); ANION GAP 5 (8-16); BLOOD UREA NITROGEN 30 MG/DL (7-18); CALCIUM 8.4 MG/DL (8.5-10.1); CHLORIDE 105 MMOL/L (99-107); CREATININE 1.76 MG/DL (0.60-1.10); GLUCOSE 130 MG/DL (70-104); MAGNESIUM 2.2 MG/DL (1.5-2.4); POTASSIUM 4.6 MMOL/L (3.5-5.1); PRO BRAIN NATRIURETIC PEPTIDE 1517 PG/ML (0-125); SODIUM 139 MMOL/L (135-145); TOTAL CARBON DIOXIDE 29.4 MMOL/L (24-32); eCRCL 34 ML/MIN; eGFR 38 ML/MIN
[2023-09-09] MEDS ORDERED: acetaminophen 325mg tablet PO PRN (23:35)
[2023-09-09] MEDS ORDERED: magnesium 4gm in 100ml NS 100 ML IV PRN (23:35)
[2023-09-09] MEDS ORDERED: potassium Cl 20 mEq SR tablet PO PRN ×2 (23:35)
[2023-09-09] MEDS ORDERED: ondansetron/PF 4mg/2ml inj IV PRN (23:35)
[2023-09-09] MEDS ORDERED: magnesium Cl slow-release 64mg tablet PO PRN (23:35)
[2023-09-09] MEDS ORDERED: magnesium 2GM in 50ml NS 50 ML IV PRN (23:35)
[2023-09-09] MEDS ORDERED: potassium Cl 40MEQ/1/2NS 520ml 520 ML IV PRN (23:35)
[2023-09-10] VITALS (9 sets, daily range): BP systolic 120–151; BP diastolic 69–94; PULSE 61–81; RESP 16–22; TEMP 97.1–97.8; O2SAT 94–98
[2023-09-10 04:59] LABS: BASOPHILS % (AUTO) 0.5 % (0-1); EOSINOPHILS # (AUTO) 0.3 X10'3 (0-0.9); EOSINOPHILS % (AUTO) 3.2 % (0-6); HEMATOCRIT 47.3 % (42.0-52.0); HEMOGLOBIN 15.4 g/dl (14.0-17.9); LYMPHOCYTES # (AUTO) 1.6 X10'3 (1.1-4.8); LYMPHOCYTES % (AUTO) 16.8 % (21-51); MEAN CORPUSCULAR HEMOGLOBIN 28.6 PG (27.0-31.0); MEAN CORPUSCULAR HGB CONC 32.6 g/dL (33.0-36.5); MEAN CORPUSCULAR VOLUME 87.6 FL (78-98); MEAN PLATELET VOLUME 7.1 FL (7.4-10.4); MONOCYTES # (AUTO) 0.8 X10'3 (0-0.9); MONOCYTES % (AUTO) 8.1 % (2-12); NEUTROPHILS % (AUTO) 71.4 % (42-75); PLATELET COUNT 261 X10'3 (140-440); RED CELL DISTRIBUTION WIDTH 15.5 % (11.5-14.5); WHITE BLOOD COUNT 9.7 X10'3 (4.5-11.0)
[2023-09-10 05:33] LABS: ALANINE AMINOTRANSFERASE 19 U/L (12-78); ALBUMIN 3.5 G/DL (3.4-5.0); ALBUMIN/GLOBULIN RATIO 0.9 (1.1-1.5); ALKALINE PHOSPHATASE 76 IU/L (46-116); ANION GAP 10 (8-16); ASPARTATE AMINO TRANSFERASE 14 U/L (10-37); BILIRUBIN,TOTAL 0.5 MG/DL (0.1-1.0); BLOOD UREA NITROGEN 27 MG/DL (7-18); BUN/CREATININE RATIO 19.1 (10.0-20.0); CALCIUM 8.7 MG/DL (8.5-10.1); CHLORIDE 107 MMOL/L (99-107); CREATININE 1.41 MG/DL (0.60-1.10); GLUCOSE 99 MG/DL (70-104); MAGNESIUM 2.1 MG/DL (1.5-2.4); PHOSPHORUS 2.8 MG/DL (2.3-4.5); POTASSIUM 4.3 MMOL/L (3.5-5.1); SODIUM 142 MMOL/L (135-145); TOTAL CARBON DIOXIDE 25.3 MMOL/L (24-32); TOTAL PROTEIN 7.4 G/DL (6.4-8.2); eCRCL 43 ML/MIN; eGFR 49 ML/MIN
[2023-09-10] MEDS: K and/or MAG REPLACEMENT MC SCH (08:00)
[2023-09-10] MEDS: heparin, porcine 5000 units/ml vial SQ SCH (08:22)
[2023-09-10] MEDS: docusate sod 100mg capsule PO SCH (08:22)
[2023-09-10] MEDS: mag hydrox/Alum hydrox/simeth 30ml oral suspension PO PRN (08:40)
[2023-09-10] MEDS: apixaban 5mg tablet PO SCH (20:38)
[2023-09-10] MEDS: magnesium hydroxide 30ml (MOM) UD suspension PO PRN (20:51)
[2023-09-11 02:00] VITALS: BP 121/87; PULSE 62; RESP 14; TEMP 97.6; O2SAT 97
[2023-09-11 06:00] VITALS: BP 113/83; PULSE 90; RESP 24; TEMP 98.1; O2SAT 93
[2023-09-11 07:33] LABS: BASOPHILS % (AUTO) 0.4 % (0-1); EOSINOPHILS # (AUTO) 0.3 X10'3 (0-0.9); EOSINOPHILS % (AUTO) 3.9 % (0-6); HEMATOCRIT 44.4 % (42.0-52.0); HEMOGLOBIN 14.6 g/dl (14.0-17.9); LYMPHOCYTES # (AUTO) 1.6 X10'3 (1.1-4.8); LYMPHOCYTES % (AUTO) 19.4 % (21-51); MEAN CORPUSCULAR HEMOGLOBIN 28.9 PG (27.0-31.0); MEAN CORPUSCULAR HGB CONC 32.8 g/dL (33.0-36.5); MEAN PLATELET VOLUME 7.2 FL (7.4-10.4); MONOCYTES # (AUTO) 0.9 X10'3 (0-0.9); MONOCYTES % (AUTO) 10.8 % (2-12); NEUTROPHILS # (AUTO) 5.4 X10'3 (1.8-7.7); NEUTROPHILS % (AUTO) 65.5 % (42-75); PLATELET COUNT 254 X10'3 (140-440); RED BLOOD COUNT 5.05 X10'6 (4.70-6.10); RED CELL DISTRIBUTION WIDTH 15.4 % (11.5-14.5); WHITE BLOOD COUNT 8.2 X10'3 (4.5-11.0)
[2023-09-11] MEDS ORDERED: RAMI10CA69 PO (07:36)
[2023-09-11] MEDS ORDERED: METO-395 PO (07:36)
[2023-09-11 07:58] LABS: ALANINE AMINOTRANSFERASE 17 U/L (12-78); ALBUMIN 3.1 G/DL (3.4-5.0); ALBUMIN/GLOBULIN RATIO 0.9 (1.1-1.5); ALKALINE PHOSPHATASE 65 IU/L (46-116); ANION GAP 9 (8-16); ASPARTATE AMINO TRANSFERASE 11 U/L (10-37); BILIRUBIN,TOTAL 0.5 MG/DL (0.1-1.0); BLOOD UREA NITROGEN 22 MG/DL (7-18); BUN/CREATININE RATIO 15.8 (10.0-20.0); CHLORIDE 103 MMOL/L (99-107); CREATININE 1.39 MG/DL (0.60-1.10); GLUCOSE 95 MG/DL (70-104); MAGNESIUM 2.2 MG/DL (1.5-2.4); PHOSPHORUS 3.1 MG/DL (2.3-4.5); POTASSIUM 4.2 MMOL/L (3.5-5.1); SODIUM 141 MMOL/L (135-145); TOTAL CARBON DIOXIDE 28.7 MMOL/L (24-32); TOTAL PROTEIN 6.7 G/DL (6.4-8.2); eCRCL 43 ML/MIN; eGFR 50 ML/MIN
[2023-09-11 08:00] VITALS: RESP 24; O2SAT 93
[2023-09-11] MEDS: metoprolol succinate 25mg (24-HOUR) SR. Tablet PO SCH (08:24)
[2023-09-11 11:00] VITALS: BP 128/85; PULSE 64; RESP 18; TEMP 97.7; O2SAT 98
[2023-09-11 21:20] LABS: HBSAG SCREEN Negative (Negative); HEP B CORE AB, IGM Negative (Negative); HEP B CORE AB, TOT Negative (Negative)
== END 2023-09-11 13:54 | disposition home or self-care (01) | DRG 314 ==
LOC: ER 15:16 → ED HOLD 23:39 → PCU 3S 09-10 02:40
PROVIDERS: ADMIT Student in an Organized Health Care Education/Training Program; ATTEND Internal Medicine
DX: I95.9 Hypotension, unspecified (principal); N17.0 Acute kidney failure with tubular necrosis; I13.0 Hypertensive heart and chronic kidney disease with heart failure and stage 1 through stage 4 chronic kidney disease, or unspecified chronic kidney disease; I50.32 Chronic diastolic (congestive) heart failure; F42.9 Obsessive-compulsive disorder, unspecified; N18.30 Chronic kidney disease, stage 3 unspecified; I49.5 Sick sinus syndrome; I48.0 Paroxysmal atrial fibrillation; G47.30 Sleep apnea, unspecified; I25.10 Atherosclerotic heart disease of native coronary artery without angina pectoris; E78.5 Hyperlipidemia, unspecified; F41.9 Anxiety disorder, unspecified; M10.9 Gout, unspecified; J43.9 Emphysema, unspecified; K59.00 Constipation, unspecified; N40.0 Benign prostatic hyperplasia without lower urinary tract symptoms; I25.2 Old myocardial infarction; Z86.16 Personal history of COVID-19; Z86.73 Personal history of transient ischemic attack (TIA), and cerebral infarction without residual deficits; Z88.0 Allergy status to penicillin; Z88.8 Allergy status to other drugs, medicaments and biological substances; Z79.01 Long term (current) use of anticoagulants; Z79.899 Other long term (current) drug therapy
CPT/HCPCS: 36415; 71045; 80048; 80053; 83735; 83880; 84100; 84132; 84484; 85025; 86704; 86705; 87081; 87340; 93005; 96360; 99285; A4615; G0378; J1644; J7030

== ENCOUNTER 2024-04-27 09:07 | Day surgery (SDC) | payer MEDICARE, MEDICAID ==
[~2024-04-27] VITALS: Ht 167.6 cm; Wt 124.5 kg
[~2024-04-27 09:07] MED LIST changes: -ALBU17AE26 PO; -AMLO2.5T2 PO; +AMLO5TAB16 PO; -AZEL205. BOTHNARES; +AZEL205.2 BOTHNARES; -DOCU100C40 PO; +EPIN0.3P3 IM; -FLUT12HF3 PO; +FLUT1AER INH; +FURO-150 PO; +MECL-231 PO; +METO100T7 PO; +OLOP30.53 BOTHNARES; -RAMI10CA69 PO; +RAMI10CA78 PO; +SENN-360 PO
[2024-04-27 09:44] VITALS: BP 116/70; PULSE 54; RESP 14
[2024-04-27] MEDS ORDERED: fentaNYL/PF 50MCG/1 ML 2ML syringe ONE (10:28)
[2024-04-27] MEDS ORDERED: midazolam 1 mg/ML 2ml injection ONE (10:29)
[2024-04-27] MEDS ORDERED: propofol inj 20 ML IV ONE (10:30)
[2024-04-27 10:55] VITALS: BP 115/67; PULSE 57; RESP 14; O2SAT 100
[2024-04-27 11:05] VITALS: BP 117/76; PULSE 60; RESP 17; O2SAT 98
[2024-04-27 11:15] VITALS: BP 116/73; PULSE 56; RESP 14; O2SAT 99
[2024-04-27 11:25] VITALS: BP 118/78; PULSE 62; RESP 16; O2SAT 98
== END 2024-04-27 11:45 | disposition home or self-care (01) ==
LOC: GI LAB 09:07
PROVIDERS: ATTEND Internal Medicine Gastroenterology
DX: R19.5 Other fecal abnormalities (principal); D12.3 Benign neoplasm of transverse colon; K57.30 Diverticulosis of large intestine without perforation or abscess without bleeding; K64.8 Other hemorrhoids; I10 Essential (primary) hypertension; I25.10 Atherosclerotic heart disease of native coronary artery without angina pectoris; E66.9 Obesity, unspecified; J43.9 Emphysema, unspecified; K21.9 Gastro-esophageal reflux disease without esophagitis; E78.5 Hyperlipidemia, unspecified; I48.91 Unspecified atrial fibrillation; G47.33 Obstructive sleep apnea (adult) (pediatric); F41.9 Anxiety disorder, unspecified; I25.2 Old myocardial infarction; M19.90 Unspecified osteoarthritis, unspecified site; Z86.73 Personal history of transient ischemic attack (TIA), and cerebral infarction without residual deficits; Z86.0100 Personal history of colon polyps, unspecified; Z90.89 Acquired absence of other organs; Z68.41 Body mass index [BMI] 40.0-44.9, adult; Z88.0 Allergy status to penicillin; Z88.8 Allergy status to other drugs, medicaments and biological substances
CPT/HCPCS: 45380; 45385; A4620; C1889; J2250; J2704; J3010; J7030; Z7512